=== PATIENT | male | born 1970 | race Caucasian/White ===

== ENCOUNTER 2021-01-01 12:02 | Emergency (ER) | payer OTHER ==
[~2021-01-01] VITALS: Ht 175.3 cm; Wt 106.6 kg
[2021-01-01] MEDS ORDERED: CHILDREN'S ASPI81 M1 PO (12:09)
[2021-01-01] MEDS ORDERED: CARDIAC MED (12:11)
[2021-01-01 14:18] LABS: ABSOLUTE BASOPHILS 0.1 thou/uL (0.0-0.2); ABSOLUTE EOSINOPHILS 0.1 thou/uL (0.0-0.7); ABSOLUTE LYMPHOCYTES 2.6 thou/uL (0.8-5.3); ABSOLUTE MONOCYTES 0.3 thou/uL (0.0-1.2); ABSOLUTE NEUTROPHILS 3.4 thou/uL (1.6-8.1); EOSINOPHILS 1.3 %; HEMATOCRIT 45.6 % (42.0-52.0); HEMOGLOBIN 15.5 gm/dL (14.0-18.0); LYMPHOCYTES 39.9 %; MCH 31.1 pg (26.0-34.0); MCHC 33.9 g/dL (28.0-37.0); MCV 91.6 fL (80.0-100.0); MONOCYTES 4.8 %; MPV 7.8 fl. (7.2-11.1); NUCLEATED RBCS 0 /100WBC; PLATELET COUNT* 186 thou/uL (150-400); RBC 4.98 mil/uL (4.50-6.00); RDW-CV 14.3 % (10.5-14.5); WBC 6.5 thou/uL (4.0-11.0)
[2021-01-01 14:30] LABS: CALCIUM 8.6 mg/dL (8.5-10.1)
[2021-01-01 14:34] LABS: ALBUMIN 3.9 g/dL (3.4-5.0); TOTAL BILIRUBIN 0.3 mg/dL (<0.1-1.0); TOTAL PROTEIN 7.5 g/dL (6.4-8.2)
[2021-01-01] MEDS ORDERED: IBUPROFEN 800800 M1 PO (15:22)
[2021-01-01] MEDS ORDERED: FLEXERIL PO (15:22)
[2021-01-01] MEDS ORDERED: BUTALB-APAP-CA1 EACH PO (15:25)
[2021-01-01 15:58] VITALS: BP 103/55
== END 2021-01-01 15:59 | disposition home or self-care (01) ==
LOC: M.ERS 12:02
PROVIDERS: Nurse Practitioner Family
DX: G43.909 Migraine, unspecified, not intractable, without status migrainosus (principal); Z20.822 Contact with and (suspected) exposure to COVID-19; Z95.5 Presence of coronary angioplasty implant and graft; Z79.82 Long term (current) use of aspirin